=== PATIENT | female | born 1980 ===

== ENCOUNTER 2024-07-11 14:31 | Outpatient (RCR) | payer MEDICAID, SELFPAY ==
--- NOTE | 2024-06-29 14:33 | XR_ITS ---
Examination: Biophysical profile, ultrasound Date and time of exam: June 29, 2024 1458 hours INDICATIONS: Diagnosis advanced maternal age Technique: Multiple transabdominal sonographic images of the pelvis abdomen obtained. Attention is directed to the breathing movement, gross body movement, amniotic fluid volume and tone. Findings: Amniotic fluid index 16.3 cm Total biophysical profile is 8 of 8. breathing movement is 2. Gross body movement is 2. tone is 2. Qualitative amniotic fluid volume is 2 Impression: Biophysical profile is 8 of 8.
[2024-06-29 15:34] VITALS: BP 110/59; PULSE 86; RESP 16; TEMP 36.7
--- NOTE | 2024-07-04 14:50 | XR_ITS ---
Examination: Biophysical profile, ultrasound Date and time of exam: July 04, 2024 at 1504 hours INDICATIONS: Advanced maternal age Technique: Multiple transabdominal sonographic images of the pelvis abdomen obtained. Attention is directed to the breathing movement, gross body movement, amniotic fluid volume and tone. Findings: Amniotic fluid index 14.0 cm Total biophysical profile is 8 of 8. breathing movement is 2. Gross body movement is 2. tone is 2. Qualitative amniotic fluid volume is 2 Impression: Biophysical profile is 8 of 8.
[2024-07-04 15:27] VITALS: BP 109/58; PULSE 103; RESP 16; TEMP 36.7
--- NOTE | 2024-07-11 14:35 | XR_ITS ---
Examination: Biophysical profile, ultrasound Date and time of exam: July 11, 2024 1440 hrs. Indications: Elderly multigravida, advanced maternal age Technique: Multiple transabdominal sonographic images of the pelvis abdomen obtained. Attention is directed to the breathing movement, gross body movement, amniotic fluid volume and tone. Findings: Amniotic fluid index 14.1 cm Total biophysical profile is 8 of 8. breathing movement is 2. Gross body movement is 2. tone is 2. Qualitative amniotic fluid volume is 2 Impression: Biophysical profile is 8 of 8.
[2024-07-11 15:11] VITALS: BP 106/55; PULSE 83; RESP 18; TEMP 36.8
== END 2024-07-11 23:59 | disposition home or self-care (01) ==
LOC: S4S1 14:31
PROVIDERS: PCP Family Medicine; Referring Provider Nurse Practitioner Women's Health; Visit Provider Nurse Practitioner Women's Health
DX: O09.523 Supervision of elderly multigravida, third trimester (principal); Z3A.34 34 weeks gestation of pregnancy
CPT/HCPCS: 59025; 76819

== ENCOUNTER 2024-07-14 01:14 | Inpatient (IN) | payer MEDICAID, SELFPAY ==
[2024-07-14] VITALS (65 sets, daily range): BP systolic 0–194; BP diastolic 0–88; PULSE 79–117; RESP 16–18; TEMP 36.9–37.3; O2SAT 90–100; BMI 30.9
--- NOTE | 2024-07-14 03:03 | XR_ITS ---
Examination: Complete OB ultrasound greater than 14 weeks Date and time of exam: July 14, 2024 at 0324 hours INDICATIONS: Pelvic contractions ruptured membranes less than one hour ago Findings: Viable intrauterine single fetus with single amniotic sac presentation Vertex Cardiac motion 122 BPM Placenta fundal grade 3 Umbilical cord insertion seen Amniotic fluid index 17.1 cm spine maternal left Ovaries obscured by bowel gas. Composite estimated gestational age based on BPD, head circumference, abdominal circumference, femur length is 34 weeks 5 days Estimated weight 2378.2 g. Survey of intracranial anatomy, spinal anatomy, abdominal anatomy, four-chamber heart performed with no abnormalities identified. Impression: Viable intrauterine gestation vertex presentation Estimated gestational age 34 weeks 5 days.
[2024-07-14] MEDS: BETAMET ACET/BETAMET NA PH (Celestone) 6 MG/ML VIAL 12 MG IM (03:30)
[2024-07-14] MEDS: Magnesium Sulfate 4 GM Ivpb 4 GM/50 ML BAG IV (03:30)
[2024-07-14] MEDS: Ampicillin Inj 2,000 MG in SODIUM CHLORIDE 0.9% (P) 100 ML 200 MG IV (03:30)
[2024-07-14 04:00] LABS: Collection Type, Urine Clean Catch
[2024-07-14] MEDS: MAGNESIUM SULF 20 GM IVPB 20 GM/500 ML BAG IV (04:14)
[2024-07-14 04:24] LABS: Basophils # (Auto) 0.1 Thou/mm3 (0.0-0.2); Basophils % (Auto) 0 % (0-2.5); Eosinophils # (Auto) 0.2 Thou/mm3 (0.0-0.5); Eosinophils % (Auto) 1 % (0-10); Hematocrit 30.3 % (36.0-46.0); Hemoglobin 9.9 g/dL (12.0-16.0); Immature Granulocytes % (Auto) 1 % (0-0); Immature Granulocytes Auto 0.08 Thou/mm3 (0.00-0.00); Lymphocytes # (Auto) 2.1 Thou/mm3 (1.0-4.8); Lymphocytes % (Auto) 14 % (10-50); Mean Corpuscular HGB Conc 32.7 g/dl (31.0-37.0); Mean Corpuscular Hemoglobin 28.5 pg (25.0-35.0); Mean Corpuscular Volume 87 fL (80-100); Monocytes # (Auto) 1.4 Thou/mm3 (0.0-0.8); Monocytes % (Auto) 9 % (0-12); Neutrophils # (Auto) 11.1 Thou/mm3 (1.8-7.7); Neutrophils % (Auto) 75 % (37-80); Nucleated Red Blood Cell % 0 /100 WBC (0); Platelet Count 239 Thou/mm3 (140-440); RDW Standard Deviation 49.6 fL (36.4-46.3); Red Blood Count 3.47 Miln/mm3 (4.00-5.20); White Blood Count 14.8 Thou/mm3 (3.6-11.0)
[2024-07-14 04:40] LABS: Bilirubin,Urine Negative (Negative); Blood,Urine 1+ (Negative); Clarity,Urine Turbid (Clear/Hazy); Color,Urine Lt-Yellow (Lt Yel-Yel); Glucose, Urine Negative (Negative); INR 0.9 (0.9-1.3); Ketones,Urine Negative (Negative); Leukocyte Esterase,Urine Positive (Negative); Nitrite,Urine Positive (Negative); PH,Urine 6.5 (5.0-7.0); Partial Thromboplastin Time 28.8 Seconds (22.0-36.0); Protein,Urine Trace (Neg - Trace); Prothrombin Time 9.9 Seconds (9.0-12.2); RBC,Urine 4 /hpf (0-3); Specific Gravity,Urine 1.008 (1.001-1.035); Squamous Epithelial Cell,Urine 2 /hpf (0-5); Urobilinogen,Urine Negative mg/dL (0.0-1.0); WBC,Urine 41 /hpf (0-5)
[2024-07-14 04:45] LABS: Alanine Aminotransferase 7 U/L (10-49); Albumin, Serum 3.1 gm/dL (3.5-5.0); Albumin/Globulin Ratio 1.1 (1.2-2.2); Alkaline Phosphatase 152 U/L (46-116); Anion Gap 7 (7-16); Aspartate Amino Transferase 28 U/L (0-34); BUN/Creatinine Ratio 16 Ratio (12-20); Bilirubin,Total 0.2 mg/dL (0.3-1.2); Blood Urea Nitrogen 11 mg/dL (9-23); Calcium 8.6 mg/dL (8.3-10.6); Calcium (Corrected) 9.3 mg/dL (8.5-10.1); Carbon Dioxide 20.9 mMol/L (20.0-31.0); Chloride 108 mMol/L (98-107); Creatinine (Component) 0.7 mg/dL (0.6-1.3); Estimated Creatinine Clearance 101.4 mL/min (>60); Globulin 2.8 gm/dL (2.3-3.5); Glucose 82 mg/dL (74-106); Osmolality,Calculated 270 (275-295); Potassium 4.6 mMol/L (3.4-5.1); Sodium 136 mMol/L (136-145); Total Protein 5.9 gm/dL (5.7-8.2); eGFR > 60 See Note
[2024-07-14 04:53] LABS: Syphilis Nonreactive (Nonreactive)
--- NOTE | 2024-07-14 05:02 | PD.LDHP ---
Documentation for date of: 07/14/24 patient came in with PPROM and uterine contractions OB Labor/Induct. HPI History of Present Illness Chief complaint: PPROM since 1 day and did not come in till today as she started having UC : 5 Para: 4 Living children: 4 History of Vaginal deliveries: 4 EDUARDO: 08/19/24 Gestational Age (weeks): 34 Gestational Age (days): 5 Comments: Poor and late care and h/o methamphetamine positive and in February, March and April 2024 she was advised magnesium sulphate for neuroprotection , Tox screen ordered , received i does of betamethasone and ampicillin for unknown GBS, but progressed too fast History of Present Dating criteria: LMP confirmed by 2nd trimester US Adequate Care: No (lt 18) Ultrasounds: normal mid trimester US Obstetrical complications: labor and other (maternal substance abuse , advanced maternal age and poor care / prolonged ROM / unknown GBS ) Narrative: as above came at 2 cm, 100 % effaced and advanced fast and quickly Labs Maternal Blood Type: O Pos Review of Systems Review of Systems Systems Reviewed: All systems reviewed, normal except as documented Narrative Review of Systems: she is in pain and is completely dilated and has a forebag Neurologic Comments: normal Psychiatric Psychiatric: Reports system reviewed and no additional complaints, except as documented Past Medical History Family History OTHER FAMILY HX: spouse by side denies Surgical History OTHER SURGICAL HX: denies Social History SUBSTANCE USE: amphetamines SUBSTANCE LAST USED: unknown (April 2024 ) Past Medical History Comments PMH COMMENT: substance abuse Meds Home Medications and Allergies Home Medications ?Medication ?Instructions ?Recorded ?Confirmed ?Type vits no.130-ferrous fum 1 tab PO QDAY 07/14/24 07/14/24 History 27 mg iron-folic acid 800 mcg tablet ( Vitamin) Allergies Allergy/AdvReac Type Severity Reaction Status Date / Time NKA* Allergy Uncoded 07/14/24 02:14 OB Exam Physical Exam Vital signs: Temp Pulse BP Pulse Ox 98.7 F 101 H 136/73 H 100 07/14/24 02:28 07/14/24 04:59 07/14/24 04:59 07/14/24 05:00 alertx 3 uterus non tender S+D and pelvic exam from 2 cm/100 % and station -3 and leaking at admisiion 1.45 hours ago progressed to anterior lip and has a forebag and station is 0 Narrative: patient advanced to complete dilation and delivery precipitately Constitutional Constitutional: mild distress Routine Neck Exam Neck: Present supple and full ROM Routine Chest/Breast/Axilla Exam Comments: normal Routine Respiratory Exam Comments: normal Detailed Labor and Delivery Exam Dilation (cm): 9.5 Effacement (%): 100 station: 0 Consistency: soft Presentation: Vertex position: Right Occiput Anterior Membranes: ruptured (forebag present and AROM done at 9.5 cm dilation as patient is pushing and baby comes to +2 station with pushing ) Baseline heart rate: 153 monitor accelerations: 15x15 monitor decelerations: None Contraction intensity: Strong Routine Extremities Exam Comments: normal Routine Skin Exam Skin: Present intact OB Results Labs 07/14/24 12:22 07/14/24 03:24 Labs: Short CBC 07/14/24 Range/Units 03:24 WBC 14.8 H (3.6-11.0) Thou/mm3 Hgb 9.9 L (12.0-16.0) g/dL Hct 30.3 L (36.0-46.0) % Plt Count 239 (140-440) Thou/mm3 BMP 07/14/24 03:24 Sodium 136 Potassium 4.6 Chloride 108 H Carbon Dioxide 20.9 BUN 11 Creatinine 0.7 Glucose 82 Calcium 8.6 Liver Function 07/14/24 Range/Units 03:24 Total Bilirubin 0.2 L (0.3-1.2) mg/dL AST 28 (0-34) U/L ALT 7 L (10-49) U/L Alkaline Phosphatase 152 H (46-116) U/L Albumin 3.1 L (3.5-5.0) gm/dL Urine 07/14/24 Range/Units 03:24 Urine Color Lt-Yellow (Lt Yel-Yel) Urine Clarity Turbid A (Clear/Hazy) Urine pH 6.5 (5.0-7.0) Ur Specific [place] 1.008 (1.001-1.035) Urine Protein Trace (Neg - Trace) Urine Glucose (UA) Negative (Negative) Impressions Impression: rapid progression to delivery for a 43 years old at 34.5 weeks , with h/o substance use and poor care and PPROM at 1900 on 07/11/2024 and received 1 dose of betamethasone magnesium sulphate for neuro protection and received 1 dose of ampicillin Tox screen pending OB Assessment & Plan Additional Plan Additional Plan Comment: Plan was to start magnesium sulphate for neuro protection and also start Ampicillin for unknown GBS and obtain tox screen and routine admission labs . NICU on standby but patient advsnce dto full dilation rapidly and see delivery note Diagnosis PPROM at 34.5 weeks in an elderly , poor care , h/o substance abuse specifically methamphetamines, in precipitous labor , expect delivery
--- NOTE | 2024-07-14 05:10 | OBDSUM_ITS ---
Shoulder Dystocia General Traction performed:: none at any time Was fundal Pressure applied? Fundal pressure applied:: No Vacuum Assisted Delivery Additional Comments Additional comments: h/o substance abuse in mother and delivery and prolonged SROM , baby transferred to NICU Data ([facility]) Data : 5 Para: 4 Term: 4 : 0 : 0 Delivery Data ([facility]) Labor Data ROM Date: 07/11/24 ROM Time: 19:00 Rupture Type: SROM Amniotic Fluid: Clear Delivery Data Labor Onset Stage 1 Date: 07/14/24 Labor Onset Stage 1 Time: 00:00 Labor Onset Stage 2 Date: 07/14/24 Labor Onset Stage 2 Time: 04:46 Delivery Date: 07/14/24 Delivery Time: 04:48 Placenta Delivery Date: 07/14/24 Placenta Delivery Time: 04:54 Delivered by: Jessica Crocker Delivery nurse: Kayce Wheeler Other staff at delivery: 2nd Nurse Other staff at delivery: Johanne Goff Delivery Method Delivery: Vaginal Delivery Type: Spontaneous Presentation: Vertex Anesthesia Type Primary Anesthesia: None Placenta Placenta Delivery: Spontaneous Cord Sample: Cord Gases Arterial Umbilical Cord Umbilical Vessels: 3 Complications Complications: none / precipitous labor [place] Data ([facility]) Data Infant Gender: Female Weight Grams: 2800 1 Minute Total: 9 5 Minute Total: 9 Additional Comments Additional comments: precipitous labor
--- NOTE | 2024-07-14 05:22 | PD.LDDELS ---
Delivery Data ([facility]) Labor Data Stimulated/Augmented: No Induction: No ROM Date: 06/11/24 ROM Time: 19:00 Rupture Type: SROM Amniotic Fluid: Clear Delivery Data EDC: 08/19/24 EDC calculated by:: ultrasound Delivery Date: 07/14/24 Delivery Time: 04:48 Gestational age (weeks): 34 Gestational age (days): 5 Placenta Delivery Date: 07/14/24 Placenta Delivery Time: 04:54 Delivered by: Jessica Crocker Delivery nurse: Kayce Vocational Evaluator at delivery: No Delivery Method Delivery: Vaginal Delivery Type: Spontaneous Presentation: Vertex Position: OA Anesthesia Type Primary Anesthesia: None Delivery Room Medications Intrapartum Medications: Antibiotics Other Intrapartum Medications: Yes Post Delivery Medications: Cytotec Placenta Placenta Delivery: Spontaneous Placenta Sent for Examination: Yes Cord Sample: Cord Blood Obtained Episiotomy Episiotomy: None EBL Estimated blood loss (ml): 150 Umbilical Cord Placenta/Cord Complication: Other (short cord) Umbilical Vessels: 3 Nuchal Cord: Not Applicable Complications Complications: none Data ([facility]) Data Gender: Female
[2024-07-14] MEDS: IBUPROFEN TAB 400 MG TABLET 800 MG PO (05:24)
[2024-07-14] MEDS: MISOPROSTOL 200 mCg TABLET 800 MCG PR (05:24)
[2024-07-14] MEDS: OXYTOCIN in NS 20 units 20 UNIT/1,000 ML BAG 125 UNIT IV (05:25)
[2024-07-14 08:30] LABS: Amphetamine/Metham Scrn,Ur OB Positive (Negative); Benzoylecgonine Screen, Ur OB Negative (Negative); Opiate Screen,Urine OB Negative (Negative); THC Screen,Urine OB Negative (Negative)
[2024-07-14] MEDS: DOCUSATE SOD 100 MG CAPSULE PO ×2 (08:53→20:23)
[2024-07-14 09:15] LABS: Amphetamines/Metham U Confirm* See Sep Rpt
--- NOTE | 2024-07-14 11:56 | PC.SS ---
BANK VAULT CUSTODIAN submitted verbal and written report to S staff, Tiffany Nguyen. Basis of report patient toxicology report positive for methamphetamine. 's toxicology results are pending. BANK VAULT CUSTODIAN notified by S staff that matter would be staffed with utilization supervisor. CWS will inform undersigned if CWS will response within 2 hrs or if matter will be a 10 day referral. BANK VAULT CUSTODIAN informed S staff patient possible d/c as early as tomorrow. assigned to NICU no timeline on discharge date. BANK VAULT CUSTODIAN updated bedside nurse and NICU nurse. Written reports placed in both patient and charts.
[2024-07-14 13:02] LABS: Basophils # (Auto) 0.1 Thou/mm3 (0.0-0.2); Basophils % (Auto) 0 % (0-2.5); Eosinophils % (Auto) 0 % (0-10); Hematocrit 29.5 % (36.0-46.0); Hemoglobin 9.8 g/dL (12.0-16.0); Immature Granulocytes % (Auto) 1 % (0-0); Immature Granulocytes Auto 0.27 Thou/mm3 (0.00-0.00); Lymphocytes # (Auto) 0.4 Thou/mm3 (1.0-4.8); Lymphocytes % (Auto) 2 % (10-50); Mean Corpuscular HGB Conc 33.2 g/dl (31.0-37.0); Mean Corpuscular Hemoglobin 29.1 pg (25.0-35.0); Mean Corpuscular Volume 88 fL (80-100); Monocytes % (Auto) 4 % (0-12); Neutrophils % (Auto) 93 % (37-80); Nucleated Red Blood Cell % 0 /100 WBC (0); Platelet Count 208 Thou/mm3 (140-440); RDW Standard Deviation 50.7 fL (36.4-46.3); Red Blood Count 3.37 Miln/mm3 (4.00-5.20); White Blood Count 24.7 Thou/mm3 (3.6-11.0)
--- NOTE | 2024-07-14 14:59 | PC.SS ---
TRIMMING CUTTER conducted bedside contact with the patient to address nursing referral indicating patient?s toxicology report positive for methamphetamine and patient was late to care. TRIMMING CUTTER introduced self, role and basis of visit. Patient confirmed use of methamphetamine approximately 1 week prior to delivery. Infant delivered pre-term, naturally. Patient stated that she is not a chronic user of methamphetamine. Chart review indicates that the patient was positive for methamphetamine in February, March and April 2024. ?s toxicology test was also positive for methamphetamine. Patient informed TRIMMING CUTTER that plans on ceasing use of methamphetamine. Per patient, will stop due to plans to breastfeed infant. Infant is the patient?s 5th child. Patient possesses 2 adult children and 2 minor children in the home ages 16 and 12 years old. FOB is Vishal Gray. Patient resides with FOB and 2 minor children. Patient stated that minor were not present when patient utilized methamphetamine. Patient denies possessing a history of CWS intervention. Patient denies episodes of domestic violence. Patient is aligned with WIC, SNAP and TANF. Patient reports no history of mental health. Patient denies mental health diagnosis or services. Patient denies intent/plan of SI/HI. Patient conducted OB services with Rh[facility]. Patient states that she has access to appropriate clothing and supplies. Patient reports ability to obtain car seat. TRIMMING CUTTER informed patient that CWS report would be submitted. CWS response will either be immediate or 10 day follow up. TRIMMING CUTTER provided the patient with community resources to include: alcohol/drug information, Parenting Network, S.S. programs, Warm Line and mental health. TRIMMING CUTTER updated bedside nurse.
--- NOTE | 2024-07-14 18:04 | OBDSUM_ITS ---
Vacuum Assisted Delivery Additional Comments Additional comments: Diagnoses PPROM Precipitate labor and delivery Poor care maternal substance abuse elderly multigravida Data ([facility]) Data : 5 Para: 4 Term: 4 : 0 : 0 Delivery Data ([facility]) Labor Data ROM Date: 07/11/24 ROM Time: 19:00 Rupture Type: SROM Amniotic Fluid: Clear Delivery Data Labor Onset Stage 1 Date: 07/14/24 Labor Onset Stage 1 Time: 00:00 Labor Onset Stage 2 Date: 07/14/24 Labor Onset Stage 2 Time: 04:46 Delivery Date: 07/14/24 Delivery Time: 04:48 Placenta Delivery Date: 07/14/24 Placenta Delivery Time: 04:54 Delivered by: Jessica Crocker Delivery nurse: Kayce Wheeler Other staff at delivery: Nurse Other staff at delivery: Johanne Goff Delivery Method Delivery: Vaginal Delivery Type: Spontaneous Presentation: Vertex Anesthesia Type Primary Anesthesia: None Placenta Placenta Delivery: Spontaneous Cord Sample: Cord Gases Arterial Umbilical Cord Umbilical Vessels: 3 [place] Data ([facility]) Data Infant Gender: Female Infant Weight Grams: 2800 1 Minute Total: 9 5 Minute Total: 9
[2024-07-15 00:10] VITALS: BP 134/62; PULSE 98; RESP 18; TEMP 37; O2SAT 97
[2024-07-15] MEDS: IBUPROFEN TAB 400 MG TABLET 800 MG PO (00:16)
[2024-07-15 04:20] VITALS: BP 110/58; PULSE 97; RESP 16; TEMP 36.7; O2SAT 97
[2024-07-15 06:27] LABS: Basophils # (Auto) 0.1 Thou/mm3 (0.0-0.2); Basophils % (Auto) 0 % (0-2.5); Eosinophils % (Auto) 0 % (0-10); Hematocrit 27.3 % (36.0-46.0); Immature Granulocytes % (Auto) 1 % (0-0); Immature Granulocytes Auto 0.33 Thou/mm3 (0.00-0.00); Lymphocytes % (Auto) 8 % (10-50); Mean Corpuscular Hemoglobin 28.9 pg (25.0-35.0); Mean Corpuscular Volume 88 fL (80-100); Monocytes # (Auto) 1.8 Thou/mm3 (0.0-0.8); Monocytes % (Auto) 7 % (0-12); Neutrophils # (Auto) 20.5 Thou/mm3 (1.8-7.7); Neutrophils % (Auto) 83 % (37-80); Nucleated Red Blood Cell % 0 /100 WBC (0); Platelet Count 220 Thou/mm3 (140-440); RDW Standard Deviation 50.9 fL (36.4-46.3); Red Blood Count 3.11 Miln/mm3 (4.00-5.20); White Blood Count 24.6 Thou/mm3 (3.6-11.0)
[2024-07-15 08:50] VITALS: BP 93/52; PULSE 94; RESP 15; TEMP 36.7; O2SAT 96
[2024-07-15] MEDS: DOCUSATE SOD 100 MG CAPSULE PO (08:53)
--- NOTE | 2024-07-15 09:26 | ESDS_ITS ---
DS: Providers Provider Date of admission: 07/14/24 02:47 Primary care physician: Physician No Primary/Family Admitting Provider: Jessica Crocker MD Attending Provider on Admission: Segundo Peralta MD Consults: 07/14/24 06:09 Referral Routine Comment: Attending Provider on DC: Segundo Peralta MD Discharging Provider: Segundo Peralta MD DS: Diagnosis Discharge Diagnosis (1) Vaginal delivery: Status: Acute Problem List Completed Was Problem List Reviewed/Reconciled?: Yes Summary/Hosp Course Time Spent with Patient Time attestation: Total time spent providing and/or coordinating discharge services: Exam Vital Signs Temp Pulse Resp BP Pulse Ox O2 Del Method 98.1 F 97 16 110/58 L 97 Room Air 07/15/24 04:20 07/15/24 04:20 07/15/24 04:20 07/15/24 04:20 07/15/24 04:20 07/15/24 04:20 Discharge Plan Plan Patient Disposition: HOME (Self Care) Patient condition on transfer: Stable Prescriptions/Referrals Prescriptions/Med Rec: New ibuprofen 400 mg Tablet 800 mg PO Q8H PRN (Reason: See Comments) 10 Days Qty: 40 0RF docusate sodium 100 mg Capsule 100 mg PO BID 30 Days Qty: 60 0RF Continued Vitamin 27 mg iron- 800 mcg tablet 1 tab PO QDAY Patient Comments: take 1 tablet by mouth once daily Referrals: Segundo Peralta MD [Physician] - No Primary/Family,Physician [Primary Care Provider] - Patient/Caregiver Discharge Instructions Meds to Beds: Yes Discharge Activity: activity as tolerated Education Materials: After a Vaginal , After Delivery Concerns, Breast Care After , Incision Care After Vaginal , Nutrition While , Understanding Depression, : Caring for Yourself, Feel Healthy After Print Language: Mohawk Stand Alone Forms: [employer] Award Info., Patient Portal Info Letter Discharge Order Discharge Orders: Discharge (Routine); Ordered 07/15/24 Ordered By: Segundo Peralta Planned Discharge Date 07/15/24
--- NOTE | 2024-07-15 09:26 | PD.LDPPPRG ---
Subjective Subjective Interval history: Delivery type: Patient doing well this morning. No acute complaints. Ambulating, tolerating p.o. and voiding without difficulty. HTN/Pre-Eclampsia screen: No chest pain, shortness of breath, headache, visual changes, epigastric or right upper quadrant pain. Breast-feeding, lochia diminishing. Bowel: Flatus+/ BM+ Exam Vital Signs Temp Pulse Resp BP Pulse Ox O2 Del Method 98.1 F 97 16 110/58 L 97 Room Air 07/15/24 04:20 07/15/24 04:20 07/15/24 04:20 07/15/24 04:20 07/15/24 04:20 07/15/24 04:20 Constitutional Constitutional: no acute distress Routine HEENT Exam Head: Present normocephalic and atraumatic Eye: Present EOMI and PERRL ENT: Present mucous membranes moist Routine Neck Exam Neck: Present supple and trachea midline Routine Respiratory Exam Respiratory: Present chest non-tender, lungs clear, normal breath sounds and no resp distress Routine Cardiovascular Exam Cardiovascular: Present RRR Routine Abdominal Exam Abdominal: Present soft and normoactive bowel sounds Routine Extremities Exam Extremities: Present full ROM Routine Skin Exam Skin: Present intact, dry and warm Routine Neurological Exam Neurological: Present alert, oriented X3 and CN II-XII intact Routine Psychiatric Exam Psychiatric: Present normal affect and normal thought process Objective Labs 07/15/24 04:28 07/14/24 03:24 Labs: Laboratory Results - last 24 hr 07/14/24 07/15/24 12:22 04:28 WBC 24.7 H D 24.6 H RBC 3.37 L 3.11 L Hgb 9.8 L 9.0 L Hct 29.5 L 27.3 L MCV 88 88 MCH 29.1 28.9 MCHC 33.2 33.0 RDW Std Deviation 50.7 H 50.9 H Plt Count 208 D 220 Neut % (Auto) 93 H 83 H Lymph % (Auto) 2 L 8 L [place] % (Auto) 4 7 Eos % (Auto) 0 0 Baso % (Auto) 0 0 Neut # (Auto) 23.0 H 20.5 H Lymph # (Auto) 0.4 L 2.0 [place] # (Auto) 1.0 H 1.8 H Eos # (Auto) 0.0 0.0 Baso # (Auto) 0.1 0.1 Immature Gran # (Auto) 0.27 H 0.33 H Absolute Nucleated RBC 0.00 0.00 Immature Gran % 1 H 1 H Nucleated RBC % 0 0 Assessment & Plan Problem List (1) Vaginal delivery: Status: Acute Assessment and plan: 1. Continue routine /post-op care 2. Labs reviewed, cbc appropriate 3. Remove dressing/Brown 4. Encourage to ambulate, shower 5. Encourage PO intake, breast feeding Time Spent With Patient Time: Total time spent is greater than 50% in coordination of care (as documented) at patient's floor/unit and/or counseling patient:
--- NOTE | 2024-07-15 13:37 | PC.CC ---
ED Systems Operator received a phone from OB regarding CWS update. Side Stitcher contacted CWS and spoke with Yanely Mckeon. Side Stitcher informed CWS that baby tested positive to methylphenidate and Pt has had one interaction with baby on 07/14/2024 and did not return overnight until discharge today 07/15/2024. Side Stitcher as informed CWS will not be doing an immediate response but will likely respond prior to baby discharging.
== END 2024-07-15 10:40 | disposition home or self-care (01) | DRG 560 ==
LOC: S4SX 07:16 → S4NX 07:55
PROVIDERS: Admitting Provider Obstetrics & Gynecology; Visit Provider Obstetrics & Gynecology
DX: O42.113 Preterm premature rupture of membranes, onset of labor more than 24 hours following rupture, third trimester (principal); O60.14X0 Preterm labor third trimester with preterm delivery third trimester, not applicable or unspecified; O69.3XX0 Labor and delivery complicated by short cord, not applicable or unspecified; O99.324 Drug use complicating childbirth; Z37.0 Single live birth; F15.90 Other stimulant use, unspecified, uncomplicated; Z3A.34 34 weeks gestation of pregnancy; O62.3 Precipitate labor
CPT/HCPCS: 36415; 59025; 59409; 76805; 80053; 80307; 81001; 83735; 84112; 85025; 85610; 85730; 86780; 86850; 86900; 86901; 94762; J0290; J0702; J2590; J3475; S0191; A9270